=== PATIENT | male | born 1985 ===

== ENCOUNTER 2022-11-20 16:59 | Emergency (ER) | payer OTHER, SELFPAY ==
[2022-11-20 17:02] VITALS: BP 155/102; PULSE 94; RESP 20; TEMP 36.9; O2SAT 97; BMI 38.1
--- NOTE | 2022-11-20 17:03 | ED.NECK ---
HPI - Neck Pain/Injury General Chief Complaint: Dental/Oral Stated Complaint: neck/ear pain Time Seen by Provider: 11/20/22 18:23 Source: patient Mode of arrival: ambulatory Limitations: no limitations History of Present Illness HPI Narrative: 37-year-old male here with complaints of right lower dental pain for the last 1 week. Patient reports he has not called his dentist are seen number this. No fevers, chills, difficulty breathing, difficulty swelling. Related Data Previous Rx's Medication Instructions Recorded clindamycin HCl 150 mg capsule 150 mg PO TID #21 caps 11/20/22 Allergies Allergy/AdvReac Type Severity Reaction Status Date / Time No Known Allergies Allergy Verified 11/20/22 17:07 Review of Systems Review of Systems: Yes all other systems are reviewed and are negative Constitutional: Constitutional: Reports no additional constitutional complaints, Denies body ache(s), Denies chills, Denies fever(s), Denies headache(s) and Denies weakness Eyes: Eyes: Reports no additional eye complaints and Denies change in vision ENT: Reports system reviewed and no additional complaints, except as documented, Reports dental pain, Denies dizziness, Denies headache(s), Denies nasal congestion, Denies nasal discharge and Denies neck pain Cardiovascular: Cardiovascular: Reports no additional cardiovascular complaints, Denies chest pain, Denies leg edema and Denies dyspnea Respiratory: Respiratory: Reports no additional respiratory complaints, Denies cough and Denies dyspnea Gastrointestinal: Gastrointestinal: Reports no additional gastrointestinal complaints, Denies abdominal pain, Denies diarrhea, Denies nausea and Denies vomiting Genitourinary: Genitourinary: Denies urinary incontinence Musculoskeletal: Musculoskeletal: Reports no additional musculoskeletal complaints, Denies back pain, Denies arthralgias, Denies joint swelling, Denies neck pain, Denies numbness and Denies tingling Integumentary/Breasts: Skin/Breast: Reports system reviewed and no additional complaints, except as docu and Denies rash Neurologic: Reports system reviewed and no additional complaints, except as documented, Denies Abnormal speech present, Denies dizziness, Denies headache(s), Denies numbness, Denies tingling and Denies weakness PMFSH Past Medical History Attestation statement: The following information was validated with the patient. Source: old records reviewed and nursing notes reviewed Social History Social History Advance Directives: No Advance Directives Information Provided: No Physical Exam Vital Signs: Vital Signs: Last Vital Signs Temp 98.5 F 11/20/22 17:02 Pulse 94 11/20/22 17:02 Resp 20 11/20/22 17:02 BP 155/102 H 11/20/22 17:02 Pulse Ox 97 11/20/22 17:02 O2 Del Method Room Air 11/20/22 17:02 BMI result Body Mass Index 38.1 Const: General: cooperative, healthy appearing, comfortable and no acute distress Orientation/consciousness: patient oriented x3 Limitations: no limitations HEENT: Other: no trismus Head: Yes normal to inspection Ears: hearing grossly normal bilaterally and TM's normal bilaterally General nose exam: Normal external nose present Face and sinus: Yes normal facial exam Mouth: Normal oral and palatal mucosa present Teeth and gingiva: caries Teeth image: 1. partially exposed tooth with local erythema/swelling and tenderness no dental abscess Throat: Yes posterior oropharynx normal Eyes: General: appearance normal, both eyes and all related structures Pupils: Equal, round and reactive pupils present Neck: Neck: Yes normal visual inspection Chest: Chest palpation & inspection: normal inspection of the chest Resp: Effort & Inspection: normal respiratory effort Auscultation: clear to auscultation bilaterally Cardio: Rate: regular rate Rhythm: regular rhythm Peripheral pulses: Peripheral pulses 2+ throughout GI: Inspection: Yes normal to inspection Palpation (GI): Soft to palpation and nontender Auscultation: normal bowel sounds Back/Spine/Pelvis: Thoracic/Lumbar Spine: thoracic and lumbar spine normal to inspection Skin: General skin exam: no rashes or lesions noted Neuro: General: patient oriented x3, no focal motor deficits and normal sensation to monofilament Cranial nerves: Yes Equal, round and reactive pupils present Cognition (Neuro): normal cognition Speech: No Abnormal speech present Gait exam (Neuro): Normal gait present Motor exam (neuro): 5/5 motor strength present throughout Extrem: General: Yes normal to inspection Course Course Course Narrative: This is an RME: Additional HPI, ROS, PE not included below will be deferred to primary provider. Patient is a 37-year-old male who presents emergency department for evaluation reporting that 1 week ago he had and he filling placed to a right lower tooth. Since then he has had increasing pain radiating to the ear, head, and neck. minimal relief with ibuprofen, currently on antibiotics. Hypertensive at the time of exam 155/112, denies history of HTN Medical Decision Making Medical Decision Making MDM Narrative: 37-year-old male here with 1 week of right lower dental pain. No difficulty breathing, swallowing, fevers or chills. On exam patient has extensive dental caries. He does have 1 tooth in the posterior part of the right lower jaw that is partially exposed focal swelling, erythema, tenderness but no obvious abscess. No lymphadenopathy No sub mental swelling or trismus Patient will be initiated on oral antibiotic with recommendations to do Motrin or Tylenol for pain, saltwater gargles and follow-up with dental Differential Diagnosis Differential Diagnoses: The differential diagnosis associated with the presentation includes Dental infection Low concern for dental abscess, Jesus's angina Prescription Management I considered prescription management with: Pain Medication and Antibiotic See discussion above Discharge Plan Discharge Clinical Impression: Toothache Patient Disposition: Home, Self-Care Instructions: Toothache (ED) Additional Instructions: Take Motrin or Tylenol for pain Use saltwater gargles Take the antibiotic as prescribed Follow-up with your dentist outpatient Prescriptions: New clindamycin HCl 150 mg capsule 150 mg PO TID Qty: 21 0RF Interventions: ED Discharge Assessment Last Done: 11/20/22 18:41 Discharge Date/Time: 11/20/22 18:41
== END 2022-11-20 18:41 | disposition home or self-care (01) ==
PROVIDERS: Emergency Provider Emergency Medicine
DX: K08.89 Other specified disorders of teeth and supporting structures (principal)
CPT/HCPCS: 99282; 99283

== ENCOUNTER 2022-11-26 12:34 | Emergency (ER) | payer OTHER, SELFPAY ==
[2022-11-26 12:39] VITALS: BP 152/119; PULSE 100; RESP 18; TEMP 36.8; O2SAT 99; BMI 38.7
--- NOTE | 2022-11-26 12:43 | ED_ITS ---
HPI - General Adult General Chief complaint: Urogenital-Male Stated complaint: Wants testing? Wont say anything else Time Seen by Provider: 11/26/22 13:35 Source: patient Mode of arrival: ambulatory Limitations: no limitations History of Present Illness HPI narrative: unprotected sex 3 or 4 months ago now intermittent rash on head of penis but no other symptoms wanted [facility] complaint: rash on penis Onset (ago): week(s) (on and off for weeks) Location: pelvis (penis) Radiation: non-radiation Severity: mild Relieving factors: none Exacerbating factors: none Associated symptoms: rash (on head of penis) Treatments prior to arrival: none Related Data Previous Rx's Medication Instructions Recorded clindamycin HCl 150 mg capsule 150 mg PO TID #21 caps 11/20/22 mupirocin 2 % topical ointment 1 appl topical BID 7 days #15 grams 11/26/22 Allergies Allergy/AdvReac Type Severity Reaction Status Date / Time No Known Allergies Allergy Verified 11/20/22 17:07 Review of Systems Review of Systems: Constitutional : No Fever, No Chills, Cardiovascular : No Chest Pain, No SOB Respiratory : No Dyspnea Gastrointestinal : No abdominal pain : no drainage, no discharge, pos rash on head of penis Musculoskeletal : No Joint Swelling Skin : No rash, no skin lesions Neuro : No Weakness, No Numbness Psych : No SI/HI PMFSH Past Medical History Attestation statement: The following information was validated with the patient. Medical History Pre-diabetes Social History Social History (Updated 11/26/22 @ 13:58 by Lianna Trujillo DO) Patient Tobacco Use Status: Tobacco use Unknown Advance Directives: No Advance Directives Information Provided: Yes Physical Exam ED Vital Signs: Vital Signs - 24 hr 11/26/22 12:39 Temperature 98.3 F Pulse Rate 100 Respiratory Rate 18 Blood Pressure 152/119 H Pulse Oximetry 99 Oxygen Delivery Method Room Air BMI result Body Mass Index 38.7 Appearance: Alert. Oriented X3. No acute distress. Eyes: Pupils equal, round and reactive to light. ENT: Pharynx normal. Neck: Normal inspection. Neck supple. CVS: Pulses normal. Respiratory: No respiratory distress. Abdomen: Soft and nontender. : no rash seen normal exam no discharge Skin: Skin warm and dry. Normal skin color. Normal skin turgor. Extremities: No lower extremity edema. Neuro: Oriented X 3. No motor deficit. No sensory deficit. Course Course Course Narrative: This is an RME: Additional HPI, ROS, PE not included below will be deferred to primary provider. This is a [id number] presenting to the emergency department with a complaints of ?genitalia rash. Patient is very nonspecific when this rash started, and is very vague on new partners. He has no urinary symptoms. Denies any penile discharge. Unable to visualize rash in triage secondary to limited privacy. VSS Plan: UA Medical Decision Making Medical Decision Making [facility] Narrative: 37 yo male with pre-diabetes here with c/o intermittent rash that is not painful or itchy since unprotected sex 3 months ago - no discharge, dysuria or systemic symptoms. He will need G+C along with RPR. fingerstick glucose. [facility] He wants to hold off antibiotics at this time. No rash today possible balanitis. Differential Diagnosis Differential Diagnoses: The differential diagnosis associated with the presentation includes syphilis, balanitis Lab Data [facility] Lab Attestation statement: I reviewed the patient's lab results. External Record Review External record reviewed: Prior outpatient labs Prescription Management I considered prescription management with: Antibiotic (declined STI treatment) Discharge Plan Discharge Clinical Impression: Balanitis Patient Disposition: Home, Self-Care Instructions: Balanitis (ED) Additional Instructions: pending tests we will call if positive include syphillis and gonorrhea/chlamydia. keep head of penis clean and if you notice any rash you can use topical ointment to clear it up. I have prescribed it. return for worsening symptoms rash or any other concerns. [facility] BS mildly elevated but not terrible make sure you follow up with your doctor in next couple of weeks for recheck - was only 174 here. Prescriptions: New mupirocin 2 % ointment 1 appl topical BID 7 Days Qty: 15 0RF No Action clindamycin HCl 150 mg capsule 150 mg PO TID Qty: 21 0RF
[2022-11-26 14:07] LABS: Glucose, Whole Blood 174 mg/dL (60-115)
[2022-11-26 14:16] LABS: Appearance Urine Clear; Color Urine Yellow; Glucose Urine UA >=1000 mg/dL (Negative); Leukocyte Esterase Urine Negative (Negative); Nitrite Urine Negative (Negative); PH 5.5 (5.0-9.0); Specific Gravity - Urine >= 1.030 (1.005-1.025); UMIC TRIGGER UACC YES; Urine Blood Negative (Negative); Urine Ketones Trace mg/dL (Negative); Urine Protein Negative (Neg-Trace)
[2022-11-26 14:20] LABS: Bacteria Urine None Seen (None Seen); Hyaline Casts Urine 0-2 /LPF (0-2); RBC Urine 0-2 /HPF (0-2); Squamous Epithelial Cell Urine 0-2 /HPF (0-2); WBC Urine 0-5 /HPF (0-5)
[2022-11-26 15:44] LABS: CT PCR NOT DETECTED (Not Detect.); NG PCR NOT DETECTED (Not Detect.)
[2022-11-29 09:01] LABS: Syphilis Screen Nonreactive (Nonreactive)
== END 2022-11-26 14:33 | disposition home or self-care (01) ==
PROVIDERS: Emergency Provider Emergency Medicine
DX: N48.1 Balanitis (principal); Z79.899 Other long term (current) drug therapy
CPT/HCPCS: 0353U; 36415; 81001; 82947; 86780; 99283